=== PATIENT | female | born 1995 ===

== ENCOUNTER 2020-04-27 08:49 | Emergency (ER) | payer BC, OTHER ==
[~2020-04-27] VITALS: Ht 152 cm; Wt 49.0 kg
[~2020-04-27 08:49] MED LIST: HYOS0.1216 PO; IBP100U5 PO; NITR-65 PO; ONDA-42 SL; ONDA8TAB9 PO
[2020-04-27 09:25] VITALS: BP 138/89
--- NOTE | 2020-04-27 10:00 | ED GU-Female ---
General Chief Complaint: OB < 20 WEEKS Stated Complaint: 7 WKS PREG;VAGINAL BLEEDING Nursing Triage Note: ARRIVED VIA AMB TO ROOM 05. STATES SHE IS 7 WEEKS PREG. HAD SOME MINIMAL VAG BLEEDING ON SATURDAY AND TODAY WOKE UP WITH SOME BLOOD CLOTS. MINIMAL ABD CRAMPING. Nursing Sepsis Screen: No Definite Risk Source: patient Exam Limitations: no limitations History of Present Illness Date Seen by Provider: Apr 27, 2020 Time Seen by Provider: 09:40 Initial Comments Patient presents to ER by private conveyance with chief complaint of vaginal spotting and progressively worsening but still less than a period since Saturday, 4 days ago. She is 9 weeks 0 days with an LMP of February 24, 2020. She follows with Dr. Hummel and had a 6 week ultrasound showing heart tones and intrauterine per patient. She's not having any dysuria fever chills nausea vomiting diarrhea constipation or history of hemorrhoids. No histo ry of medical problems. She is taking vitamins and no other medications. No history of surgeries. Last thing in the vagina was over a month ago. She is not having any pelvic pain associated with this. She called Dr. Hummel's office this morning and he was unavailable so she came here. No mention of a low-lying placenta. Allergies and Home Medications Allergies Coded Allergies: No Known Drug Allergies (Unverified , 04/27/20) Patient Home Medication List Home Medication List Reviewed: Yes Review of Systems Review of Systems Constitutional: No chills, No fever, No malaise EENTM: No ear discharge, No ear pain Respiratory: No cough, No short of breath Cardiovascular: No edema, No Hx of Intervention Gastrointestinal: No abdominal pain, No nausea, No vomiting Genitourinary: see HPI; denies discharge, denies dysuria : Yes LMP: Feb 24, 2020 Musculoskeletal: No back pain, No joint pain All Other Systemes Reviewed Negative Unless Noted: Yes Past Dydoqkw-Vkzmzx-Yakkii Hx Patient Social History Alcohol Use: Denies Use Recreational Drug Use: No Smoking Status: Never a Smoker Recent Foreign Travel: No Contact w/Someone Who Travel: No Recent Infectious Disease Expo: No Recent Hopitalizations: No Past Medical History Surgeries: No Respiratory: No Cardiac: No Neurological: No Genitourinary: No Gastrointestinal: No Musculoskeletal: No Endocrine: No HEENT: No Cancer: No Psychosocial: No Integumentary: No Physical Exam Vital Signs Vital Signs - First Documented 04/27/20 09:25 Temp 37.0 Pulse 70 Resp 16 B/P (MAP) 138/89 (105) Pulse Ox 98 O2 Delivery Room Air Capillary Refill : Less Than 3 Seconds Height, Weight, BMI Height: '" Weight: lbs. oz. kg; 21.00 BMI Method: General Appearance: WD/WN, no apparent distress HEENT: PERRL/EOMI, pharynx normal Neck: full range of motion, supple, normal inspection Cardiovascular: normal peripheral pulses, regular rate, rhythm Respiratory: no respiratory distress, no accessory muscle use Gastrointestinal: soft, no organomegaly Extremities: normal inspection, normal capillary refill Neurologic/Psychiatric: alert, oriented x 3 Skin: normal color, warm/dry Progress/Results/Core Measures Suspected Sepsis Recent Fever Within 48 Hours: No Infection Criteria Present: None New/Unexplained Altered Menta: No Sepsis Screen: No Definite Risk SIRS Temperature: Pulse: 70 Respiratory Rate: 16 Blood Pressure 138 /89 Mean: 105 Results/Orders Lab Results Laboratory Tests Test 04/27/20 10:04 Range/Units Urine Color YELLOW Urine Clarity SL CLOUDY Urine pH 7.5 5-9 Urine Specific Kennedy 1.015 L 1.016-1.022 Urine Protein NEGATIVE NEGATIVE Urine Glucose (UA) NEGATIVE NEGATIVE Urine Ketones NEGATIVE NEGATIVE Urine Nitrite NEGATIVE NEGATIVE Urine Bilirubin NEGATIVE NEGATIVE Urine Urobilinogen 0.2 < = 1.0 MG/DL Urine Leukocyte Esterase NEGATIVE NEGATIVE Urine RBC (Auto) NEGATIVE NEGATIVE Urine RBC RARE /HPF Urine WBC 0-2 /HPF Urine Squamous Epithelial Cells 10-25 H /HPF Urine Crystals NONE /LPF Urine Bacteria FEW H /HPF Urine Casts NONE /LPF Urine Mucus NEGATIVE /LPF Urine Culture Indicated NO My Orders Orders - SANDY RODAS Abo Rh Type (04/27/20 09:54) Hcg,Quantitative (04/27/20 09:54) Ua Culture If Indicated (04/27/20 09:54) Vital Signs/I&O 04/27/20 09:25 Temp 37.0 Pulse 70 Resp 16 B/P (MAP) 138/89 (105) Pulse Ox 98 O2 Delivery Room Air Capillary Refill : Less Than 3 Seconds Blood Pressure Mean: 105 Progress Note : Time: 09:58 Progress Note Patient declined a speculum exam at this time. We'll encourage her to follow-up in 2-3 days with primary care. We're going to check an ABO Rh and an hCG quantitative. Urinalysis. Departure Impression Primary Impression: Vaginal bleeding in patient after first trimester Disposition: 01 HOME, SELF-CARE Condition: Stable Departure-Patient Inst. Decision time for Depature: 10:12 Referrals: ZOIE HUMMEL MD Patient Instructions: Bleeding In Early Add. Discharge Instructions: Drink plenty of fluids. Pelvic rest until cleared by your cooky machine operator. Plan to follow-up in the next 2-5 days with your cooky machine operator. Return to the ER if you're having intense cramping and worsening bleeding that is not controlled with heating pads and Tylenol 650 mg every 6 hours. All discharge instructions reviewed with patient and/or family. Voiced understanding. Work/School Note: Work Release Form Date Seen in the Emergency Department: Apr 27, 2020 Return to Work: Apr 28, 2020 Restrictions: No Restrictions Copy Copies To 1: ZOIE HUMMEL MD, TITUS J Apr 27, 2020 10:00
[2020-04-27 10:11] LABS: BILIRUBIN,URINE NEGATIVE (NEGATIVE); CLARITY,URINE SL CLOUDY; COLOR,URINE YELLOW; GLUCOSE, URINE (UA) NEGATIVE (NEGATIVE); KETONES,URINE NEGATIVE (NEGATIVE); LEUKOCYTE ESTERASE ,URINE NEGATIVE (NEGATIVE); NITRITE,URINE NEGATIVE (NEGATIVE); PH,URINE 7.5 (5-9); PROTEIN,URINE NEGATIVE (NEGATIVE)
[2020-04-27 10:22] LABS: BACTERIA,URINE FEW /HPF; RBC,URINE RARE /HPF; WBC,URINE 0-2 /HPF
== END 2020-04-27 10:38 | disposition home or self-care (01) ==
LOC: ER 08:51
DX: O20.9 Hemorrhage in early pregnancy, unspecified (principal); Z3A.09 9 weeks gestation of pregnancy
CPT/HCPCS: 36415; 81000; 84702; 86900; 86901

== ENCOUNTER 2020-05-17 17:11 | Outpatient (CLI) | payer BC ==
[~2020-05-17] VITALS: Ht 152.4 cm; Wt 46.8 kg
--- NOTE | 2020-05-17 17:16 | NUR ---
PANCHO ANTON presented to unit via ambulation, with c/o 10 WKS PREG/ N/V. PANCHO ANTON weighed, gowned, voided, and to bed. EFHM and TOCO applied, VS taken. PANCHO ANTON oriented to bed controls, call light, TV, heat, and A/C controls.
--- NOTE | 2020-05-17 17:20 | NUR ---
Dr. Hummel called unit prior to pt arrival to unit. Dr. Hummel on unit and notified of pt arrival. No new orders rec'd.
[2020-05-17] MEDS ORDERED: D5 LR IV SOLUTION 1,000 ML IV ONE (17:28)
[2020-05-17 17:30] VITALS: BP 112/66
[2020-05-17] MEDS ORDERED: D5 LR IV SOLUTION 1,000 ML IV SCH (17:30)
[2020-05-17] MEDS ORDERED: ONDANSETRON 4 MG/2 ML (SDV) Z0FRAN IVP ONE (17:30)
[2020-05-17 17:58] VITALS: BP 112/66
[2020-05-17] MEDS ORDERED: ONDANSETRON 4 MG/2 ML (SDV) Z0FRAN ONE (18:40)
--- NOTE | 2020-05-17 19:45 | NUR ---
IVF COMPLETED. PT REPORTS NAUSEA HAS RESOLVED. REPORTS FEELING MUCH BETTER. REPORTS FEELING WELL ENOUGH TO GO HOME. ORDER OBTAINED FOR D/C.
--- NOTE | 2020-05-17 20:00 | NUR ---
IV OUT WITH [facility] [employer] ACHIEVED. STERILE GAUZE AND BAND-AID OVER SITE. DISCHARGE INSTRUCTIONS REVIEWED AND PT VERBALIZES UNDERSTANDING. SIGNATURE OBTAINED. PT, IN STABLE CONDITION, AMB OFF UNIT FOR D/C TO HOME.
--- NOTE | 2020-05-18 08:09 | Physician Query-Final Dx ---
KATTY COLE 05/18/20 0809: Clinic Account Progress/Dx Physician Query: Please give diagnosis Please include # weeks gestation Date of Service May 17, 2020 at 17:11 ZOIE DACOSTA MD 05/18/20 1009: Clinic Account Progress/Dx DIAGNOSIS: Diagnosis hyperemesis gravidarum at 10 weeks gestation KATTY COLE May 18, 2020 08:09 ZOIE DACOSTA MD May 18, 2020 10:09
== END 2020-05-17 20:00 | disposition home or self-care (01) ==
LOC: LDRP 17:11 → WSo 17:11
PROVIDERS: ATTEND Obstetrics & Gynecology
DX: O21.1 Hyperemesis gravidarum with metabolic disturbance (principal); Z3A.10 10 weeks gestation of pregnancy
CPT/HCPCS: 96361; 96374; 99213

== ENCOUNTER 2020-11-26 22:04 | Inpatient (IN) | payer BC ==
[~2020-11-26] VITALS: Ht 154.9 cm; Wt 60.0 kg
[2020-11-26 22:31] VITALS: BP 125/91
[2020-11-26 22:32] VITALS: BP 125/91
[2020-11-26 22:37] VITALS: BP 125/91
[2020-11-26] MEDS ORDERED: D5 LR IV SOLUTION 1,000 ML IV ONE (23:00)
[2020-11-26 23:15] VITALS: BP 125/91
[2020-11-26] MEDS ORDERED: MINERAL OIL CONCENTRATE 99.9% 15 ML UDC TOP PRN (23:15)
[2020-11-26] MEDS ORDERED: LIDOCAINE/EPI 2% 1:200,00 (XYLOCAINE) 10 ML VIAL INJ PRN (23:15)
[2020-11-26 23:29] LABS: BILIRUBIN,URINE NEGATIVE (NEGATIVE); CLARITY,URINE CLEAR; COLOR,URINE YELLOW; GLUCOSE, URINE (UA) NEGATIVE (NEGATIVE); KETONES,URINE NEGATIVE (NEGATIVE); LEUKOCYTE ESTERASE ,URINE NEGATIVE (NEGATIVE); NITRITE,URINE NEGATIVE (NEGATIVE); PH,URINE 7.5 (5-9); PROTEIN,URINE NEGATIVE (NEGATIVE)
[2020-11-26 23:36] LABS: BASOPHILS % (AUTO) 0 % (0-10); EOSINOPHILS # (AUTO) 0.1 10^3/uL (0.0-0.3); EOSINOPHILS % (AUTO) 1 % (0-10); HEMATOCRIT 33 % (35-52); HEMOGLOBIN 10.7 g/dL (11.5-16.0); LYMPHOCYTES % (AUTO) 21 % (12-44); MEAN CORPUSCULAR HEMOGLOBIN 29 pg (25-34); MEAN CORPUSCULAR HGB CONC 32 g/dL (32-36); MEAN CORPUSCULAR VOLUME 88 fL (80-99); MEAN PLATELET VOLUME 11.2 fL (9.0-12.2); MONOCYTES # (AUTO) 0.8 10^3/uL (0.0-1.0); MONOCYTES % (AUTO) 9 % (0-12); NEUTROPHILS # (AUTO) 6.4 10^3/uL (1.8-7.8); NEUTROPHILS % (AUTO) 68 % (42-75); PLATELET COUNT 286 10^3/uL (130-400); WHITE BLOOD COUNT 9.5 10^3/uL (4.3-11.0)
[2020-11-26 23:36] LABS: BACTERIA,URINE TRACE /HPF; SQUAMOUS EPITHELIAL CELL,UR >50 /HPF
[2020-11-26 23:43] LABS: ALBUMIN 3.1 GM/DL (3.2-4.5); CHLORIDE 108 MMOL/L (98-107); POTASSIUM 3.8 MMOL/L (3.6-5.0); SODIUM 136 MMOL/L (135-145)
[2020-11-26 23:44] LABS: CALCIUM 8.6 MG/DL (8.5-10.1)
[2020-11-26 23:46] LABS: GLUCOSE 97 MG/DL (70-105); TOTAL PROTEIN 7.1 GM/DL (6.4-8.2)
[2020-11-26] MEDS ORDERED: fentaNYL 2 mcg/ml BUPIVA 0.125 100 ML ONE (23:46)
[2020-11-26 23:47] LABS: CARBON DIOXIDE 14 MMOL/L (21-32)
[2020-11-26 23:48] LABS: BILIRUBIN,TOTAL 0.5 MG/DL (0.1-1.0)
[2020-11-26 23:49] LABS: ALKALINE PHOSPHATASE 177 U/L (40-136); CREATININE SERUM 0.69 MG/DL (0.60-1.30); GFR ESTIMATED > 60
[2020-11-26 23:50] LABS: BUN/CREATININE RATIO 12
[2020-11-26 23:52] LABS: ALANINE AMINOTRANSFERASE 17 U/L (0-55)
[2020-11-27] VITALS (49 sets, daily range): BP systolic 94–137; BP diastolic 55–87
[2020-11-27] MEDS ORDERED: EPIDURAL (fentaNYL 2 MCG/ML BUPIVA 0.125%)100 ML BAG EPI SCH (00:15)
[2020-11-27] MEDS ORDERED: ONDANSETRON 4 MG/2 ML (SDV) Z0FRAN IV PRN (00:15)
[2020-11-27] MEDS ORDERED: LACTATED RINGERS 1,000 ML IV SCH (00:15)
[2020-11-27] MEDS ORDERED: NALOXONE 0.4 MG/ML 1 ML (NARCAN) VIAL IV PRN ×2 (00:15)
[2020-11-27] MEDS ORDERED: diphenhydrAMINE 50 MG/ML INJ (BENADRYL) IV PRN (00:15)
[2020-11-27] MEDS ORDERED: METOCLOPRAMIDE INJ 10 MG/2 ML (REGLAN) IV PRN (00:15)
[2020-11-27] MEDS: D5 LR IV SOLUTION 1,000 ML IV SCH ×2 (00:16→06:07)
[2020-11-27] MEDS ORDERED: OXYTOCIN PRE-MIX DRIP 500 ML IV ONE (03:12)
[2020-11-27] MEDS: OXYTOCIN PRE-MIX DRIP 500 ML IV SCH ×2 (03:21→17:31)
[2020-11-27] MEDS ORDERED: CATHETER FLUSH 10 ML SYR IV SCH (06:00)
--- NOTE | 2020-11-27 06:22 | History & Physical ---
History and Physical Date Seen by Provider: Nov 27, 2020 Time Seen by Provider: 06:19 This patient is a 25-year-old 1 female who presented with complaint of contractions. She is 38+ weeks gestation and was having regular contractions and was dilated to 3 cm. She was admitted in labor. She has continued to contract and make cervical change eventually her cervical change stalled and she has been augmented now with Pitocin. She currently is 9 cm plus dilated with bloody show. Her history is uncomplicated for this and her GBS culture was negative. She denied rupture membranes or bleeding on presentation. Allergies are none Medications are vitamins Medical social and surgical history is all per the antepartum record Vital Signs Date Time Temp Pulse Resp B/P (MAP) Pulse Ox O2 Delivery O2 Flow Rate FiO2 11/27/20 05:25 36.0 82 20 106/59 (75) 11/27/20 05:10 75 20 109/62 (78) 11/27/20 04:55 79 20 113/71 (85) 11/27/20 04:40 86 20 106/65 (79) 11/27/20 03:55 78 20 106/59 (75) 100 Room Air 11/27/20 03:40 74 20 94/55 (68) 100 Room Air 11/27/20 03:25 75 20 109/55 (73) 100 Room Air 11/27/20 03:07 81 20 113/70 (84) 99 Room Air 11/27/20 02:52 94 20 103/57 (72) 100 Room Air 11/27/20 02:35 76 20 103/56 (72) 98 Room Air 11/27/20 02:25 82 20 104/56 (72) 98 Room Air 11/27/20 02:08 79 20 101/59 (73) 98 Room Air 11/27/20 01:53 83 20 104/75 (85) 98 Room Air 11/27/20 01:37 80 20 105/57 (73) 99 Room Air 11/27/20 01:25 84 20 112/55 (74) 98 Room Air 11/27/20 01:02 84 20 109/67 (81) 98 Room Air 11/27/20 00:57 88 20 102/61 (75) 99 Room Air 11/27/20 00:52 92 20 108/72 (84) 99 Room Air 11/27/20 00:45 94 20 114/72 (86) 99 Room Air 11/27/20 00:40 86 20 118/84 (95) 99 Room Air 11/27/20 00:38 87 20 118/87 (97) 99 Room Air 11/27/20 00:36 102 20 119/66 (83) 99 Room Air 11/27/20 00:33 93 20 116/58 (77) 99 Room Air 11/27/20 00:32 88 20 127/73 (91) 98 Room Air 11/27/20 00:27 102 20 123/74 (90) 98 Room Air 11/27/20 00:20 96 20 133/81 (98) 99 Room Air 11/27/20 00:15 95 20 135/75 (95) 99 Room Air 11/26/20 23:15 36.5 102 20 99 Room Air 11/26/20 22:37 36.5 102 20 99 Room Air 11/26/20 22:32 36.5 102 20 99 Room Air 11/26/20 22:31 36.5 102 20 125/91 (102) 99 Room Air Vital signs are stable. Patient is afebrile. HEENT exam is normal Neck is supple no lymphadenopathy no thyromegaly Abdomen is gravid soft nontender nondistended Extremities show no clubbing or cyanosis. There is no Homans' sign. Pelvic exam currently shows a cervix 9 cm dilated very soft and stretchy vertex presentation at the +1 to +2 station. Membranes are artificially ruptured now with a small amount of additional fluid from the vagina. There is a significant bloody show and mucus. Assessment and plan term at 38+ weeks gestation in active labor. Patient is expected vaginal delivery relatively soon 38+ weeks gestation in active labor Allergies and Home Medications Allergies Coded Allergies: No Known Drug Allergies (Unverified , 04/27/20) Patient Home Medication List Home Medication List Reviewed: Yes ZOIE DACOSTA MD Nov 27, 2020 06:22
[2020-11-27] MEDS ORDERED: DOCU-143 PO (06:23)
[2020-11-27] MEDS ORDERED: OXYC1TAB87 PO (06:23)
[2020-11-27] MEDS ORDERED: IBUP-1780 PO (06:23)
--- NOTE | 2020-11-27 06:24 | Discharge Inst-Surgical ---
Discharge Inst-Surgical Depart Medication/Instructions New, Converted or Re-Newed RX: RX on Chart Consults/Follow Up Patient Instructions: As directed Orders & Referrals Follow Up Appt: Call to make follow up appt. for patient in 4 weeks. Activity Per routine post vaginal delivery instructions. Please call in RX to patient pharmacy. Diet as tolerated Patient may shower or tub bathe as desired. Activity Activity as Tolerated: No Diet Discharge Diet: No Restrictions ZOIE DACOSTA MD Nov 27, 2020 06:24
[2020-11-27] MEDS ORDERED: LIDOCAINE/EPI 2% 1:200,00 (XYLOCAINE) 20 ML VIAL ONE (06:30)
[2020-11-27] MEDS ORDERED: METHYLERGONOVINE 0.2 MG/ML (METHERGINE) AMP ONE (08:02)
[2020-11-27] MEDS ORDERED: METHYLERGONOVINE 0.2 MG/ML (METHERGINE) AMP IM ONE (08:12)
[2020-11-27] MEDS ORDERED: MEASLES,MUMPS,RUBELLA 1 EA INJ SC ONE (09:15)
[2020-11-27] MEDS ORDERED: TETANUS,DIPTH,PERTUSS P/F (BOOSTRIX) 0.5 ML VIAL IM ONE (09:15)
[2020-11-27] MEDS ORDERED: ONDANSETRON 4 MG/2 ML (SDV) Z0FRAN IVP PRN (09:15)
[2020-11-27] MEDS ORDERED: oxyCODONE/APAP 5/325MG (PERCOCET 5) TABLET PO PRN (09:15)
[2020-11-27] MEDS ORDERED: OXYTOCIN PRE-MIX DRIP 500 ML IV SCH (09:15)
[2020-11-27] MEDS ORDERED: BENZOCAINE/MENTHOL (DERMOPLAST) 56 ML CAN TP PRN (09:15)
[2020-11-27] MEDS: KETOROLAC 30 MG/ML VIAL IVP SCH ×2 (09:46→17:01)
[2020-11-27] MEDS ORDERED: WITCH HAZEL(TUCKS) 40 EA JAR ONE (09:48)
[2020-11-27] MEDS ORDERED: WITCH HAZEL(TUCKS) 40 EA JAR TOP PRN (10:00)
--- NOTE | 2020-11-27 17:19 | OPERATIVE REPORT ---
DATE OF SERVICE: 11/27/2020 DELIVERY NOTE The patient delivered by term spontaneous vaginal delivery a viable female infant with Apgars of 9 and 9 at 1 and 5 minutes respectively, weight of 7 pounds 14 ounces, time of 0801 and a cord blood pH that is pending. The was delivered over a midline episiotomy that was performed with the baby pushed down onto the perineum, heart rate dropping into the 70s and mother unable to expel the baby. Episiotomy was performed to shorten the second stage of labor. Delivery was accomplished fairly promptly after the episiotomy was performed. The was bulb suctioned on delivery of the head and again on completion of delivery. The umbilical cord was doubly clamped and cut by the father. The was passed to mother's abdomen. Cord bloods were obtained. The placenta delivered fairly promptly spontaneously Erwin with a fairly large quantity of blood. The cervix, vagina, rectum, and perineum were examined and found intact, except for the midline episiotomy, which was repaired with a single suture of 3-0 Vicryl Rapide in the usual manner. The patient did require a single injection of Methergine to assist with the embolic effect of the IV Pitocin in order to compress the uterus and stem her bleeding. Sponge and needle counts were correct on completion of delivery and the repair. Blood loss was around 500 mL at that point. The patient remained in the LDR for recovery. The baby remained with the mother. Job ID: [id number] DocumentID: [id number] Dictated Date: 11/27/2020 08:27:01 Agricultural Production Engineer Date: 11/27/2020 11:52:22 Dictated By: ZOIE DACOSTA MD
[2020-11-27] MEDS: DOCUSATE SODIUM 100 MG (COLACE) CAP PO SCH (21:11)
[2020-11-27] MEDS ORDERED: IBUPROFEN 800 MG (MOTRIN) TAB PO ONE (22:57)
[2020-11-27] MEDS: IBUPROFEN 800 MG (MOTRIN) TAB PO SCH (23:09)
[2020-11-28 00:30] VITALS: BP 99/54
[2020-11-28] MEDS ORDERED: IBUPROFEN 800 MG (MOTRIN) TAB PO ONE (05:14)
[2020-11-28] MEDS: IBUPROFEN 800 MG (MOTRIN) TAB PO SCH ×4 (05:23→23:58)
[2020-11-28 06:52] VITALS: BP 108/68
[2020-11-28 09:06] VITALS: BP 123/68
[2020-11-28] MEDS: DOCUSATE SODIUM 100 MG (COLACE) CAP PO SCH ×2 (09:07→21:11)
--- NOTE | 2020-11-28 09:48 | Anesthesia-Regional Post-Op ---
Regional Patient Condition Mental Status: Alert, Oriented x3 Circulation: Same as Pre-Op Headache: Absent Sensation: Full Recovery Motor Block: Absent Post Op Complications Complications None Follow Up Care/Instructions Patient Instructions None needed. Anesthesia/Patient Condition Patient is doing well, no complaints, stable vital signs, no apparent adverse anesthesia problems. No complications reported per nursing. ROSA HUYNH CRNA Nov 28, 2020 09:48
[2020-11-28 17:09] VITALS: BP 114/72
[2020-11-28] MEDS: KETOROLAC 30 MG/ML VIAL IVP SCH (20:33)
[2020-11-28 23:58] VITALS: BP 115/71
[2020-11-29 05:48] VITALS: BP 115/70
[2020-11-29] MEDS: IBUPROFEN 800 MG (MOTRIN) TAB PO SCH ×2 (05:48→12:57)
--- NOTE | 2020-11-29 07:58 | Progress Note ---
Standard Progress Note Progress Notes/Assess & Plan Date Seen by a Provider: Nov 28, 2020 Time Seen by a Provider: 07:45 Progress/Assessment & Plan This is a late entry. This patient was seen yesterday morning this is my note for the visit This patient is without complaint. She is ambulating, voiding, tolerating oral intake well and has good pain control. Vital signs are stable. Patient is afebrile. Fundus is firm below the umbilicus and nontender. Extremities no clubbing cyanosis. There is no Homans' sign. Assessment and plan day #1 doing well. Plan for routine convalescent care ZOIE DACOSTA MD Nov 29, 2020 07:58
--- NOTE | 2020-11-29 07:59 | Progress Note ---
Standard Progress Note Progress Notes/Assess & Plan Date Seen by a Provider: Nov 29, 2020 Time Seen by a Provider: 07:58 Progress/Assessment & Plan This is a late entry. This patient was seen yesterday morning this is my note for the visit This patient is without complaint. She is ambulating, voiding, tolerating oral intake well and has good pain control. Vital signs are stable. Patient is afebrile. Fundus is firm below the umbilicus and nontender. Extremities no clubbing cyanosis. There is no Homans' sign. Assessment and plan day #1 doing well. Plan for routine convalescent care November 29, 2020 Patient is without complaint. She is ambulating, voiding, tolerating oral intake well has good pain control. Patient is requesting discharge home. Vital Signs Date Time Temp Pulse Resp B/P (MAP) Pulse Ox O2 Delivery O2 Flow Rate FiO2 11/29/20 05:48 36.0 76 18 115/70 (85) 98 Room Air 11/28/20 23:58 36.4 83 18 115/71 (86) 97 Room Air 11/28/20 17:09 36.6 102 18 114/72 (86) 99 Room Air 11/28/20 09:06 36.3 99 18 123/68 (86) 98 Room Air Vital signs are stable. Patient is afebrile. Fundus is firm below the umbilicus nontender. Extremities show no clubbing or cyanosis. There is no Homans' sign. Assessment and plan day #2 status post term spontaneous vaginal delivery at 38+ weeks gestation. Patient is doing well will be discharged home with follow-up in clinic Final Diagnosis 38-week spontaneous vaginal delivery ZOIE DACOSTA MD Nov 29, 2020 07:59
[2020-11-29 12:55] VITALS: BP 110/60
[2020-11-29] MEDS: DOCUSATE SODIUM 100 MG (COLACE) CAP PO SCH (12:57)
== END 2020-11-29 13:15 | disposition home or self-care (01) | DRG 807 ==
LOC: LDRP 22:04 → WSo 22:04 → LDRP 22:50
PROVIDERS: ADMIT Obstetrics & Gynecology; ATTEND Obstetrics & Gynecology
PROC: 10E0XZZ Delivery of Products of Conception, External Approach (ICD-10-PCS; principal; 2020-11-27)
PROC: 0W8NXZZ Division of Female Perineum, External Approach (ICD-10-PCS; 2020-11-27)
DX: O80 Encounter for full-term uncomplicated delivery (principal); Z37.0 Single live birth; Z3A.38 38 weeks gestation of pregnancy
CPT/HCPCS: 36415; 80053; 81000; 85025; 86850; 86900; 86901; 87070; 87075; 87205; 99212

== ENCOUNTER → 2022-12-16 | Outpatient (CLI) | payer BC ==
[~2022-12-16] MED LIST changes: +DOCU-143 PO; +IBUP-1780 PO; +OXYC1TAB87 PO
== END ==
LOC: LAB 08:28
PROVIDERS: ATTEND Obstetrics & Gynecology
DX: O20.0 Threatened abortion (principal); Z3A.00 Weeks of gestation of pregnancy not specified
CPT/HCPCS: 36415; 84702